=== PATIENT | female | born 1975 | race Caucasian/White ===

== ENCOUNTER 2018-04-12 14:46 | Emergency (ER) | payer OTHER ==
[2018-04-12 15:23] LABS: URINE BLOOD (Dip) POC Negative (NEGATIVE); URINE GLUCOSE (Dip) POC Negative (NEGATIVE); URINE KETONES (Dip) POC Negative (NEGATIVE); URINE LEUKOCYTE EST (Dip) POC Trace (NEGATIVE); URINE NITRITE (Dip) POC Negative (NEGATIVE); URINE TOTAL PROTEIN POC Negative (NEGATIVE)
== END 2018-04-12 16:11 | disposition home or self-care (01) ==
LOC: FTE 14:46
DX: R39.9 Unspecified symptoms and signs involving the genitourinary system (principal)
CPT/HCPCS: 81003; 87086; 99283

== ENCOUNTER 2018-05-11 08:25 | Emergency (ER) | payer OTHER | END 2018-05-11 09:34 | disposition home or self-care (01) | LOC: FTE 08:25 | DX: J06.9 Acute upper respiratory infection, unspecified (principal) | CPT/HCPCS: 71045; 99283-25 ==

== ENCOUNTER 2018-07-10 15:38 | Emergency (ER) | payer OTHER ==
[2018-07-10] MEDS: IBUPROFEN 600 MG TAB PO (18:10)
== END 2018-07-10 19:12 | disposition home or self-care (01) ==
LOC: FTE 15:38
DX: S60.221A Contusion of right hand, initial encounter (principal); X58.XXXA Exposure to other specified factors, initial encounter; Y92.811 Bus as the place of occurrence of the external cause
CPT/HCPCS: 73130; 73130-RT; 99283-25

== ENCOUNTER 2018-09-26 09:35 | Emergency (ER) | payer OTHER ==
[2018-09-26 11:11] LABS: URINE BLOOD (Dip) POC 2+ (NEGATIVE); URINE GLUCOSE (Dip) POC Negative (NEGATIVE); URINE KETONES (Dip) POC Negative (NEGATIVE); URINE LEUKOCYTE EST (Dip) POC Trace (NEGATIVE); URINE NITRITE (Dip) POC Negative (NEGATIVE); URINE TOTAL PROTEIN POC 1+ (NEGATIVE)
[2018-09-26 11:11] LABS: URINE PH (Dip) POC 7.5 (5.0-8.5)
[2018-09-26] MEDS: CEPHALEXIN 500 MG CAP PO (12:09)
[2018-09-26] MEDS: ACETAMINOPHEN 325 MG TAB PO (12:10)
[2018-09-26] MEDS: PHENAZOPYRIDINE 100 MG TAB PO (12:10)
== END 2018-09-26 12:29 | disposition home or self-care (01) ==
LOC: FTE 09:35
DX: R30.0 Dysuria (principal)
CPT/HCPCS: 81003; 81025; 99283

== ENCOUNTER 2018-11-23 12:24 | Emergency (ER) | payer OTHER ==
[2018-11-23] MEDS: traMADol 50 MG TAB PO (13:57)
[2018-11-23] MEDS: LORAZEPAM 0.5 MG TAB PO (13:57)
== END 2018-11-23 17:32 | disposition home or self-care (01) ==
LOC: FTE 12:24
DX: N64.4 Mastodynia (principal)
CPT/HCPCS: 76641; 99284-25

== ENCOUNTER 2018-12-01 11:00 | Emergency (ER) | payer OTHER ==
[2018-12-01 13:03] LABS: ADD UMIC YES; UR ASCORBIC ACID NEGATIVE (NEGATIVE); UR BILIRUBIN (Dip) NEGATIVE (NEGATIVE); UR BLOOD (Dip) NEGATIVE (NEGATIVE); UR CLARITY TURBID (CLEAR); UR COLOR BLUE (YELLOW); UR GLUCOSE (Dip) NEGATIVE (NEGATIVE); UR KETONES (Dip) NEGATIVE (NEGATIVE); UR LEUKOCYTE ESTERASE (Dip) NEGATIVE Leu/ul (NEGATIVE); UR NITRITE (Dip) NEGATIVE (NEGATIVE); UR RBC 1 /HPF (0-5); UR SQUAMOUS EPITHELIAL CELL FEW /HPF (FEW); UR TOTAL PROTEIN (Dip) NEGATIVE (NEGATIVE); UR UROBILINOGEN (Dip) NEGATIVE (NEGATIVE); UR WBC 2 /HPF (0-5)
== END 2018-12-01 13:51 | disposition home or self-care (01) ==
LOC: FTE 11:00
DX: K21.9 Gastro-esophageal reflux disease without esophagitis (principal)
CPT/HCPCS: 71045; 81001; 93005; 99285-25

== ENCOUNTER 2019-01-03 14:20 | Emergency (ER) | payer OTHER ==
[2019-01-03 14:55] LABS: URINE BLOOD (Dip) POC 3+ (NEGATIVE); URINE GLUCOSE (Dip) POC Negative (NEGATIVE); URINE KETONES (Dip) POC Negative (NEGATIVE); URINE LEUKOCYTE EST (Dip) POC 1+ (NEGATIVE); URINE NITRITE (Dip) POC Negative (NEGATIVE); URINE TOTAL PROTEIN POC 2+ (NEGATIVE)
[2019-01-03 14:55] LABS: URINE PH (Dip) POC 5.5 (5.0-8.5)
[2019-01-03] MEDS: CEPHALEXIN 500 MG CAP PO (15:26)
[2019-01-03] MEDS: PHENAZOPYRIDINE 100 MG TAB PO (15:26)
== END 2019-01-03 15:48 | disposition home or self-care (01) ==
LOC: FTE 15:48
DX: N30.00 Acute cystitis without hematuria (principal)
CPT/HCPCS: 81003; 81025; 99283

== ENCOUNTER 2019-02-10 11:09 | Emergency (ER) | payer OTHER ==
[2019-02-10 14:07] LABS: UR BILIRUBIN (Dip) NEGATIVE (NEGATIVE); UR BLOOD (Dip) 3+ mg/dL (NEGATIVE); UR CLARITY SLIGHTLY CLOUDY (CLEAR); UR COLOR YELLOW (YELLOW); UR GLUCOSE (Dip) NEGATIVE (NEGATIVE); UR KETONES (Dip) NEGATIVE (NEGATIVE); UR TOTAL PROTEIN (Dip) 1+ mg/dl (NEGATIVE)
[2019-02-10 14:08] LABS: ADD UMIC YES; UR BACTERIA FEW /HPF (NONE SEEN); UR LEUKOCYTE ESTERASE (Dip) 1+ Leu/ul (NEGATIVE); UR NITRITE (Dip) NEGATIVE (NEGATIVE); UR SQUAMOUS EPITHELIAL CELL FEW /HPF (FEW); UR UROBILINOGEN (Dip) NEGATIVE (NEGATIVE); URINE RBCS >200 /HPF (0)
[2019-02-10 14:09] LABS: UR CALCIUM OXALATE CRYSTAL RARE /HPF (NONE SEEN)
== END 2019-02-10 14:25 | disposition home or self-care (01) ==
LOC: FTE 11:09
DX: R30.0 Dysuria (principal)
CPT/HCPCS: 81001; 87086; 99283